=== PATIENT | female | born 1985 | race African-American/Black ===

== ENCOUNTER 2023-11-12 16:00 | Emergency (ER) | payer OTHER ==
[~2023-11-12] VITALS: Ht 177.8 cm; Wt 104.0 kg
[2023-11-12 16:20] VITALS: BP 165/105; PULSE 101; RESP 20; TEMP 98.9; O2SAT 99
[2023-11-12] MEDS ORDERED: DEXT30SU17 MT (18:09)
[2023-11-12] MEDS ORDERED: AZIT250T12 MT (18:09)
[2023-11-12] MEDS ORDERED: IBUP-1525 MT (18:09)
[2023-11-12] MEDS ORDERED: ACET-2708 MT (18:09)
== END 2023-11-12 18:41 | disposition home or self-care (01) ==
LOC: ER 16:00
DX: U07.1 COVID-19 (principal)
CPT/HCPCS: 87426; 87804; 99283